=== PATIENT | female | born 2000 | race Caucasian/White ===

== ENCOUNTER 2021-11-05 18:16 | Emergency (ER) | payer OTHER ==
[~2021-11-05] VITALS: Wt 52.6 kg
[2021-11-05] MEDS ORDERED: MINI PRENATAL1 EACH PO (18:44)
== END 2021-11-05 23:00 | disposition home or self-care (01) ==
LOC: ED 18:16
DX: O26.893 Other specified pregnancy related conditions, third trimester (principal); R55 Syncope and collapse; Z3A.30 30 weeks gestation of pregnancy; F17.200 Nicotine dependence, unspecified, uncomplicated; Z79.899 Other long term (current) drug therapy